=== PATIENT | female | born 1995 | race Caucasian/White ===

== ENCOUNTER 2016-09-02 16:59 | Emergency (ER) | payer BC ==
[~2016-09-02] VITALS: Ht 172.7 cm; Wt 90.9 kg
[2016-09-02 17:04] VITALS: TEMP 98.4
[2016-09-02 18:28] LABS: BASO # 0.1 (0.0-0.2); BASO % 0.5 % (0.0-2.0); EOS # 0.7 (0.0-0.7); EOS % 4.5 % (0-4.0); GRAN # 10.5 (1.4-6.5); GRAN % 71.3 % (42.2-75.2); HEMATOCRIT 42.2 % (37.0-47.0); HEMOGLOBIN 13.6 g/dl (12.5-16.0); LYMPH # 2.6 (1.2-3.4); LYMPH % 17.5 % (20.0-51.0); MEAN CELL VOLUME 92 fl (80.0-100.0); MEAN CORPUSCULAR HEMOGLOBIN 30 pg (27.0-31.0); MEAN CORPUSCULAR HGB CONC 32 g/dl (33.0-37.0); MEAN PLATELET VOLUME 8.8 fl (7.4-10.4); MONO # 0.9 (0.1-0.6); PLATELET COUNT 403 K/mm3 (130-400); RED BLOOD COUNT 4.57 M/mm3 (4.10-5.30); WHITE BLOOD COUNT 14.8 K/mm3 (4.8-10.8)
[2016-09-02 18:36] LABS: CALCIUM 10.1 mg/dL (8.4-10.2); CREATININE, serum 0.7 mg/dL (0.52-1.25)
[2016-09-02 19:21] LABS: PH 7 (5-8); URINE APPEARANCE Hazy; URINE BACTERIA Many /hpf; URINE BILIRUBIN Negative (NEGATIVE); URINE BLOOD Negative (NEGATIVE); URINE COLOR Yellow; URINE GLUCOSE Negative (NEGATIVE); URINE KETONE Negative (NEGATIVE); URINE RBC 0-2 /hpf; URINE UROBILINOGEN Negative (NEGATIVE)
[2016-09-02 21:35] VITALS: BP 120/80; PULSE 76
[2016-09-08 09:58] LABS: ALBUMIN 4.5 gm/dL (3.5-5.0); BILIRUBIN,DIRECT 0.3 mg/dL (0.0-0.4); BILIRUBIN,TOTAL 0.5 mg/dL (0.0-1.0); TOTAL PROTEIN 8.2 gm/dL (6.4-8.2)
[2016-09-08 10:48] LABS: THYROID STIMULATING HORMONE 1.91 uIU/mL (0.465-4.680)
== END 2016-09-02 21:35 | disposition home or self-care (01) ==
LOC: COL.ER 16:59
PROVIDERS: Emergency Medicine
DX: R55 Syncope and collapse (principal)
CPT/HCPCS: J2765; J7030

== ENCOUNTER → 2016-09-08 | Outpatient (CLI) | payer BC | LOC: COL.CARD 14:15 | DX: R55 Syncope and collapse (principal) ==